=== PATIENT | female | born 1965 | race African-American/Black ===

== ENCOUNTER 2018-05-29 10:20 | Outpatient (CLI) | payer BC ==
--- NOTE | 2018-05-29 14:36 | Ultrasound Report ---
ULTRASOUND THYROID SCAN HISTORY: Other specified disorders of thyroid. FINDINGS: The thyroid gland is at the upper limits of normal size or slightly enlarged. The right thyroid lobe measures 5.6 x 1.4 x 2.0 cm. A 7 mm well defined hypoechoic nodule is noted near the superior pole. A 3 mm similar appearing hypoechoic nodule is noted near mid pole. The left thyroid lobe measures 5.0 x 1.3 x 1.7 cm. There are 2 tiny hypodense nodules in the mid left thyroid lobe measuring 4 mm and 7 mm. The isthmus measures 2 mm in thickness. No cervical mass, adenopathy or fluid collection is identified. IMPRESSION: Borderline thyromegaly. There are 2 small hypoechoic nodules in both thyroid lobes as described above. Overall these have a benign appearance on ultrasound. Consider surveillance. These nodules are probably too small to biopsy under ultrasound guidance.
== END 2018-05-29 10:21 | disposition home or self-care (01) ==
LOC: US 10:20
PROVIDERS: ATTEND Family Medicine
DX: E07.89 Other specified disorders of thyroid (principal)
CPT/HCPCS: 76536

== ENCOUNTER 2018-07-10 12:00 | Outpatient (CLI) | payer BC ==
--- NOTE | 2018-07-10 14:57 | Mammography Report ---
BILATERAL DIGITAL SCREENING MAMMOGRAM with CAD: 07/10/18 12:00:00 CLINICAL: Baseline screening. FINDINGS: There are bilateral scattered areas of fibroglandular density.No mass, architectural distortion or suspicious calcifications. IMPRESSION: No mammographic evidence of malignancy. BI-RADS CATEGORY: 1 -- Negative RECOMMENDATION: Routine mammographic screening in one year. COMMENT: Patient follow-up letters are generated by our [employer] application.
== END 2018-07-10 12:01 | disposition home or self-care (01) ==
LOC: MAMMO 12:00
PROVIDERS: ATTEND Family Medicine
DX: Z12.31 Encounter for screening mammogram for malignant neoplasm of breast (principal)
CPT/HCPCS: 77067